=== PATIENT | male | born 1990 ===

== ENCOUNTER 2023-05-30 20:35 | Emergency (ER) | payer MEDICAID ==
[2023-05-30] MEDS ORDERED: Bacitracin Oint 1 GM U/D Packet TOP ONE (20:58)
[2023-05-30] MEDS ORDERED: Lidocaine 1% 5 ML VIAL INJECT ONE (20:58)
[2023-05-30] MEDS ORDERED: Diphtheria,Pertussis(Acell),Tetanus Vaccine 0.5 ML Syringe IM ONE (21:29)
== END 2023-05-30 21:43 | disposition home or self-care (01) ==
LOC: DL.ED 20:35
DX: S61.217A Laceration without foreign body of left little finger without damage to nail, initial encounter (principal); F17.210 Nicotine dependence, cigarettes, uncomplicated; Z23 Encounter for immunization; Z88.2 Allergy status to sulfonamides; W20.8XXA Other cause of strike by thrown, projected or falling object, initial encounter; Y92.89 Other specified places as the place of occurrence of the external cause; Y99.0 Civilian activity done for income or pay
CPT/HCPCS: 12001; 90471; 90715; 99282-25; A9270-GY; J3490